=== PATIENT | male | born 2000 | race Two or more races ===

== ENCOUNTER 2023-09-10 21:55 | Emergency (ER) | payer OTHER ==
[2023-09-10] MEDS ORDERED: MIDAZOLAM HCL 2 MG/2 ML VIAL IVP ONE (22:03)
[2023-09-10] MEDS ORDERED: FentaNYL CITRATE PF 100 MCG/2 ML VIAL IVP ONE (22:03)
[2023-09-10] MEDS: FAMOTIDINE 20 MG TABLET PO ONE (22:43)
== END 2023-09-10 22:44 | disposition home or self-care (01) ==
LOC: EMS 22:02
DX: K27.9 Peptic ulcer, site unspecified, unspecified as acute or chronic, without hemorrhage or perforation (principal)
CPT/HCPCS: 99283; J3010; J2250